=== PATIENT | male | born 1960 | race Hispanic/Latino ===

== ENCOUNTER 2017-03-24 08:48 | Day surgery (SDC) | payer OTHER ==
[2017-03-24] MEDS ORDERED: Lactated Ringer's 500 ML IV ONE (10:44)
[2017-03-24] MEDS ORDERED: Propofol 10 mg/ml Inj (20 ML) ONE (11:31)
[2017-03-24] MEDS ORDERED: Midazolam 2 MG/2 ML VIAL ONE (11:31)
[2017-03-24 12:21] VITALS: BP 121/59; PULSE 66; RESP 14; TEMP 98; O2SAT 100
== END 2017-03-24 12:22 | disposition home or self-care (01) ==
LOC: H.ENDO 08:48
PROVIDERS: ATTEND Internal Medicine Gastroenterology
DX: Z12.11 Encounter for screening for malignant neoplasm of colon (principal); E78.5 Hyperlipidemia, unspecified; K64.8 Other hemorrhoids
CPT/HCPCS: 45378; J2001; J2250; J2704; J7120